=== PATIENT | female | born 1995 | race Caucasian/White ===

== ENCOUNTER 2018-08-21 19:12 | Emergency (ER) | payer SELFPAY, OTHER ==
[2018-08-21] MEDS: IBUPROFEN 600 MG TAB PO (21:10)
== END 2018-08-21 21:55 | disposition home or self-care (01) ==
LOC: FTE 19:12
DX: J00 Acute nasopharyngitis [common cold] (principal); H65.01 Acute serous otitis media, right ear; R40.2412 Glasgow coma scale score 13-15, at arrival to emergency department
CPT/HCPCS: 99282